=== PATIENT | female | born 1940 | race Caucasian/White ===

== ENCOUNTER 2020-09-28 14:41 | Emergency (ER) | payer MEDICARE ==
[~2020-09-28] VITALS: Ht 160 cm; Wt 69.9 kg
[2020-09-28] MEDS ORDERED: PLEASE ENTER ALLERGIES MC SCH (15:30)
[2020-09-28] MEDS ORDERED: DILTIAZEM 5 MG/ML, 5ML IV ONE (15:30)
[2020-09-28] MEDS ORDERED: DILTIAZEM 5 MG/ML, 5ML ONE (15:31)
[2020-09-28 15:35] LABS: BASOPHILS % (AUTO) 1 % (0-1); EOSINOPHILS % (AUTO) 1 % (1-7); LYMPHOCYTES % (AUTO) 19 % (22-44); MEAN CORPUSCULAR HEMOGLOBIN 31.6 pg (27.0-34.8); MEAN CORPUSCULAR HGB CONC 33.4 g/dL (32.4-35.8); MEAN PLATELET VOLUME 7.4 fL (7.4-10.4); MONOCYTES % (AUTO) 9 % (2-9); NEUTROPHILS % (AUTO) 71 % (42-75); PLATELET COUNT 263 x10^3/uL (130-400); RED BLOOD COUNT 4.84 x10^6/uL (3.82-5.3); RED CELL DISTRIBUTION WIDTH 13.9 % (9.6-15.2)
[2020-09-28 15:36] LABS: MD NO
--- NOTE | 2020-09-28 15:41 | NUR ---
Assumed care of pt.
[2020-09-28] MEDS ORDERED: ACET650S21 PO (15:47)
[2020-09-28] MEDS ORDERED: LORA-446 PO (15:47)
[2020-09-28 15:48] LABS: ALBUMIN 3.8 g/dL (3.4-5.0); ANION GAP 8 mmol/L (5-15); CALCIUM 9.9 mg/dL (8.5-10.1); CHLORIDE 108 mmol/L (98-107); CREATININE 0.83 mg/dL (0.55-1.02)
[2020-09-28 15:52] LABS: TROPONIN I < 0.015 ng/mL (0.000-0.045)
[2020-09-28] MEDS ORDERED: DILTIAZEM 125 MG in SODIUM CHLORIDE 0.9% 100 ML IV SCH (16:00)
--- NOTE | 2020-09-28 17:03 | NUR ---
Dr. Pak bedside.
--- NOTE | 2020-09-28 17:08 | NUR ---
pt brought snacks, dinner ordered.
[2020-09-28 17:55] VITALS: BP 121/59
== END 2020-09-28 18:54 | disposition home or self-care (01) ==
LOC: ED 17:19
DX: R00.2 Palpitations (principal); R00.0 Tachycardia, unspecified; R07.89 Other chest pain; I51.7 Cardiomegaly; I44.7 Left bundle-branch block, unspecified
CPT/HCPCS: 36415; 71045; 80048; 82040; 84443; 84484; 85025; 93005; 96365; 96366; 96367; 96368; 96376; 99285

== ENCOUNTER 2020-12-14 12:03 | Outpatient (CLI) | payer MEDICARE ==
[~2020-12-14 12:03] MED LIST: ACET650S21 PO; LORA-446 PO; REGADENOSON 0.4 MG/5 ML SYRINGE ONE
== END 2020-12-14 23:59 | disposition home or self-care (01) ==
LOC: CFH 12:03
PROVIDERS: ATTEND Internal Medicine Cardiovascular Disease
DX: I36.1 Nonrheumatic tricuspid (valve) insufficiency (principal); I44.7 Left bundle-branch block, unspecified; R94.31 Abnormal electrocardiogram [ECG] [EKG]
CPT/HCPCS: 78452; 93017; 93306; A9502; J2785